=== PATIENT | female | born 1955 | race Caucasian/White ===

== ENCOUNTER → 2016-10-19 | Outpatient (CLI) | payer BC ==
--- NOTE | 2016-10-20 12:06 | MM ---
Reason for exam: screening (asymptomatic). Last mammogram was performed 1 year and 1 month ago. History: Patient is postmenopausal and has history of other cancer at age 60. Family history of breast cancer in mother at age 55. Took estrogen for 10 years. Physical Findings: A clinical breast exam by your physician is recommended on an annual basis and results should be correlated with mammographic findings. MG Screening Mammo w CAD Bilateral CC and MLO view(s) were taken. XCCL view(s) were taken of the left breast. Prior study comparison: September 17, 2015, bilateral MG screening mammo w CAD. July 22, 2014, bilateral MG screening mammo w CAD. There are scattered fibroglandular densities. Finding: There are stable, coarse calcifications in the upper outer quadrant, middle position of the left breast. No significant changes in finding since September 17, 2015 and July 22, 2014. ASSESSMENT: Benign, BI-RAD 2 RECOMMENDATION: Routine screening mammogram of both breasts in 1 year.
== END | disposition home or self-care (01) ==
LOC: RADMAMWWP 12:10
PROVIDERS: ATTEND Obstetrics & Gynecology
DX: Z12.31 Encounter for screening mammogram for malignant neoplasm of breast (principal)

== ENCOUNTER → 2016-12-06 | Outpatient (CLI) | payer BC ==
[2016-12-06 13:31] LABS: Blood Urea Nitrogen 21 mg/dL (7-17); Non-African American GFR(MDRD) 57 (>60 ml/min/1.73 sqM)
== END | disposition home or self-care (01) ==
LOC: LABWHC1 12:44
PROVIDERS: ATTEND Physical Medicine & Rehabilitation
DX: Z01.812 Encounter for preprocedural laboratory examination (principal)
CPT/HCPCS: 36415; 82565; 84520

== ENCOUNTER → 2017-10-22 | Outpatient (CLI) | payer OTHER ==
--- NOTE | 2017-10-24 11:00 | MM ---
Reason for exam: screening (asymptomatic). Last mammogram was performed 1 year ago. History: Patient is postmenopausal and has history of other cancer at age 60. Family history of breast cancer in mother at age 55. 2 benign excisional biopsies of the right breast. Took estrogen for 10 years. Physical Findings: A clinical breast exam by your physician is recommended on an annual basis and results should be correlated with mammographic findings. MG 3D Screening Mammo W/Cad Bilateral CC and MLO view(s) were taken. Technologist: RT Angélica (R)(M) Prior study comparison: October 19, 2016, bilateral MG screening mammo w CAD. September 17, 2015, bilateral MG screening mammo w CAD. The breast tissue is heterogeneously dense. This may lower the sensitivity of mammography. Benign appearing bilateral calcifications. No suspicious abnormality. No significant changes when compared with prior studies. ASSESSMENT: Benign, BI-RAD 2 RECOMMENDATION: Routine screening mammogram of both breasts in 1 year.
== END | disposition home or self-care (01) ==
LOC: RADMAMWWP 14:19
PROVIDERS: ATTEND Obstetrics & Gynecology
DX: Z12.31 Encounter for screening mammogram for malignant neoplasm of breast (principal); Z80.3 Family history of malignant neoplasm of breast
CPT/HCPCS: 77063; 77067

== ENCOUNTER → 2018-10-28 | Outpatient (CLI) | payer MEDICARE, OTHER ==
--- NOTE | 2018-10-29 10:53 | MM ---
Reason for exam: screening (asymptomatic). Last mammogram was performed 1 year ago. History: Patient is postmenopausal and has history of other cancer at age 60. Family history of breast cancer in mother at age 55. 2 benign excisional biopsies of the right breast. Took estrogen for 10 years. Physical Findings: A clinical breast exam by your physician is recommended on an annual basis and results should be correlated with mammographic findings. MG 3D Screening Mammo W/Cad Bilateral CC and MLO view(s) were taken. Prior study comparison: October 22, 2017, bilateral MG 3d screening mammo w/cad. October 19, 2016, bilateral MG screening mammo w CAD. The breast tissue is heterogeneously dense. This may lower the sensitivity of mammography. Stable benign calcifications. There is no discrete abnormality. No significant changes when compared with prior studies. ASSESSMENT: Benign, BI-RAD 2 RECOMMENDATION: Routine screening mammogram of both breasts in 1 year.
== END | disposition home or self-care (01) ==
LOC: RADMAMWWP 09:27
PROVIDERS: ATTEND Obstetrics & Gynecology
DX: Z12.31 Encounter for screening mammogram for malignant neoplasm of breast (principal); Z80.3 Family history of malignant neoplasm of breast
CPT/HCPCS: 77063; 77067

== ENCOUNTER 2019-01-17 14:18 | Inpatient (IN) | payer MEDICARE, OTHER ==
[~2019-01-17 14:18] MED LIST: AMPICILLIN-SULBACTAM 3 GM in SODIUM CHLORIDE 0.9% 100 ML IVPB ONE; VANCOMYCIN IV PER PHARMACY 1 EACH MISC MISCELLANE PRN
[2019-01-17] MEDS ORDERED: VANCOMYCIN 750 MG in SODIUM CHLORIDE 0.9% 250 ML IVPB ONE (15:00)
[2019-01-17] MEDS ORDERED: LACTATED RINGERS 1,000 ML IV ONE ×2 (15:18→19:48)
[2019-01-17 15:19] LABS: Glucose,Whole Blood 77 mg/dL (75-99)
[2019-01-17] MEDS ORDERED: LIDOCAINE 1% 20 ML VIAL (10MG/ML) FOR IV START INTRADERMA ONE (15:19)
[2019-01-17] MEDS ORDERED: ONDANSETRON 4 MG/2 ML VIAL IVP ONE (15:22)
[2019-01-17] MEDS ORDERED: MIDAZOLAM (PF) 2 MG/2 ML VIAL IV ONE (15:36)
[2019-01-17] MEDS ORDERED: MIDAZOLAM 2 MG/2 ML VIAL ONE (19:09)
[2019-01-17] MEDS ORDERED: PROPOFOL 10 MG/ML 20 ML VIAL IV ONE (19:09)
[2019-01-17] MEDS ORDERED: fentaNYL (PF) 50 MCG/ML 2 ML AMP ONE (19:09)
[2019-01-17] MEDS ORDERED: LIDOCAINE 1% INJ 10MG/ML (20 ML MDV) SQ ONE (19:58)
[2019-01-17] MEDS ORDERED: ROPIVACAINE 5MG/ML 20ML VIAL MISCELLANE ONE (20:00)
[2019-01-17] MEDS ORDERED: MORPHINE SULFATE 4 MG/ML SYRINGE IV PRN (21:32)
[2019-01-17] MEDS ORDERED: HYDROcodone/APAP 5-325MG 1 EACH TAB PO PRN (21:32)
[2019-01-17] MEDS ORDERED: VANCOMYCIN IV PER PHARMACY 1 EACH MISC MISCELLANE PRN (21:38)
[2019-01-17] MEDS ORDERED: VANCOMYCIN 1,000 MG in SODIUM CHLORIDE 0.9% 250 ML IVPB STA (21:48)
--- NOTE | 2019-01-17 21:49 | P.OP ---
Date of Procedure: 01/17/19 Preoperative Diagnosis: 1. Right thumb abscess status post dog bite injury 2. Comminuted intra-articular subacute open fracture of the right thumb proximal phalanx with dislocation of the interphalangeal joint Postoperative Diagnosis: 1. Right thumb abscess status post dog bite injury 2. Comminuted intra-articular subacute open fracture of the right thumb proximal phalanx with dislocation of the interphalangeal joint 3. Septic arthritis of the right thumb interphalangeal joint with likely osteomyelitis of the proximal and distal phalanges 4. Near complete rupture of the extensor pollicis longus tendon Procedure(s) Performed: 1. Incision and drainage of right thumb abscess 2. Irrigation and debridement of subacute open, intraarticular right thumb proximal phalanx fracture Anesthesia: MAC, local Surgeon: Pasquale Castro Estimated Blood Loss (ml): 10 Condition: stable Disposition: PACU Indications for Procedure: The patient is a very pleasant 63-year-old female who was evaluated in the office and diagnosed with a right thumb abscess secondary to a dog bite injury that occurred approximately 2 months ago. She failed to improve after 3 courses of oral antibiotics and was referred to ms for further evaluation and treatment. The thumb was grossly infected on exam. X-rays obtained in our office showed an intra-articular fracture of the proximal phalanx was substantial bone loss and dislocation of the interphalangeal joint. Treatment options and alternatives were discussed in detail with the patient and her . Operative debridement and possible surgical stabilization was recommended. Risks and benefits were reviewed, including (but not limited to) the risks of b leeding, injury to tendons or neurovascular structures, persistent or recurrent infection, wound healing problems, stiffness and possible need for additional surgery, including potentially amputation the distal phalanx. The patient expressed understanding, willingness to accept these risks and wished to proceed with surgery. Consent forms were signed. The surgical site was confirmed and marked preoperatively by both the patient and myself. Operative Findings: Gross purulence throughout the wound, including the end of the proximal phalanx and around the extensor and flexor tendons. Intramedullary bone of the distal phalanx was extremely soft, likely infected. Substantial bone loss of greater than half of the head of the proximal phalanx with persistent joint subluxation. Description of Procedure: The patient was positioned supine with the operative limb on an arm board. Monitored anesthesia was administered uneventfully. A tourniquet was placed on the arm but was not inflated. Antibiotics were held in anticipation of obtaining intraoperative cultures. A time-out was performed, confirming the patient, the operative side, site and the procedure to be performed: all team members expressed agreement. Local anesthetic without epinephrine was injected in a field block around the thumb. The right upper extremity was then prepped and draped in standard, sterile fashion. The hand (but not the thumb) was exsanguinated with an Esmarch which was clamped at the wrist and used as a tourniquet. Loupe magnification was used throughout the case for optimum visualization. The eschar on the ulnar aspect of the proximal phalanx measured approximately 11 mm x 8 mm. This was unroofed to revealed gross purulence below. A culture swab from the fluid at this site was obtained. A midaxial incision was marked over the ulnar aspect of the thumb, incorporating this area in an elliptical excision. The skin was sharply incised and full-thickness skin flaps were elevated. The surrounding skin was extremely edematous and friable, tearing easily. Two small ulcerated wounds over the dorsal aspect of the distal and proximal phalanges (present preoperatively) were opened in the process of debriding the dorsal soft tissues. The residual bone of the head of the proximal phalanx was immediately deep to the distal wound and was likely created by ulceration and chronic pressure necrosis. A large fragment of bone was attached to the undersurface of the eschar, likely the residual bone of the fractured head of the proximal phalanx. This had a piece of the collateral ligament and volar plate attached to it but was sitting free in the wound without other bony or soft tissue attachments. The bone was sclerotic, without any articular cartilage. This was felt to be nonviable and was removed. The wound was explored. Thin purulent fluid was found diffusely throughout the wound, extending along the dorsal soft tissues and extensor mechanism as well as on the dorsal surface of the flexor sheath. Tissue cultures were obtained. The fluid did not appear to track proximally along either the flexor or extensor sheaths. The pulp of the thumb was also edematous with similar fluid. Spreading dissection was used to break up septae. No large pockets of pus were encountered. Only a thin portion of the radial aspect of the terminal extensor tendon remained intact with significant loss of tendon substance extending all the way to the mid aspect of the proximal phalanx. The remaining tendon fibers proximally were friable and of very poor quality, tearing away easily with gentle traction. The distal aspect of the volar plate was absent. There was no visible damage to the FPL tendon and its insertion appeared intact. The remaining head of the proximal phalanx was identified. This was eburnated and completely devoid of articular cartilage, as was the corresponding surface of the distal phalanx. The distal phalanx rested in a volarly subluxed and ulnarly angulated position. The FPL was somewhat contracted but the joint could be passively reduced; however, less than half of the proximal joint surface bone remained. Given the appearance of the articular surfaces and in the setting of an active infection, the decision was made not to try to reduce and stabilize the remaining joint with internal fixation. The wound was sharply and mechanically debrided with scalpels, rongeurs and curettes. Proliferative fibrous tissue and infected or devitalized soft tissues were carefully resected. The sharp ends of the remaining bone of the proximal phalanx were trimmed with a rongeur and the bone end was debrided with a curette. The metaphyseal bone of the distal phalanx was examined. There were no visible erosions but the bone gave way easily when bluntly probed. The was no altagracia pus but the underlying cancellous bone was soft and did not appear healthy. This was carefully curetted and specimens of the bone were sent for culture. IV vancomycin was then administered. The endosteal space was thoroughly irrigated with normal saline using a syringe and angiocatheter. The entire surgical field was copiously irrigated using normal saline and a bulb syringe. The tourniquet was released after 65 minutes. Good capillary refill returned quickly. There was no active arterial bleeding but steady flow persisted from the medullary canal. The incisions and dorsal wounds were loosely closed with interrupted 5-0 Prolene sutures. A small soft tissue defect remained where the eschar had been excised, measuring approximately 4mm x 5 mm remained. No tendon, bone or neurovascular structures were exposed. A vessel loop was cut into 3 small strips and inserted into the wound as drains. Sterile dressings of Adaptic, 4 x 4's, Jo and Coban were applied. All sponge, needle and instrument counts were correct at the end of the case. The patient tolerated the procedure well. She was taken to recovery in stable condition. The patient will be admitted for continued treatment with IV antibiotics, to be guided by intraoperative cultures.
[2019-01-17] MEDS: HYDROcodone/APAP 5-325MG 1 EACH TAB PO PRN (22:01)
[2019-01-17 22:10] VITALS: BMI 21.7
[2019-01-17 22:29] LABS: Basophils # (A) 0.1 k/uL (0-0.2); Basophils % (A) 1 %; Eosinophils # (A) 0.5 k/uL (0-0.7); Eosinophils % (A) 7 %; HCT 34.9 % (34.0-46.0); HGB 11.5 gm/dL (11.4-16.0); Lymphocytes % (A) 27 %; MCH 28.4 pg (25.0-35.0); MCHC 32.8 g/dL (31.0-37.0); MCV 86.6 fL (80.0-100.0); Mean Platelet Volume 7.7; Monocytes # (A) 0.4 k/uL (0-1.0); Monocytes % (A) 5 %; Neutrophils # (A) 4.1 k/uL (1.3-7.7); Neutrophils % (A) 58 %; Platelet Count 312 k/uL (150-450); RBC 4.03 m/uL (3.80-5.40); RDW 14.5 % (11.5-15.5); WBC 7.1 k/uL (3.8-10.6)
[2019-01-17 22:37] LABS: African American GFR (CKD) 77 (>60 ml/min/1.73 sqM); Anion Gap 5 mmol/L; Blood Urea Nitrogen 20 mg/dL (7-17); C Reactive Protein <5.0 mg/L (<10.0); Calcium 9.1 mg/dL (8.4-10.2); Carbon Dioxide 28 mmol/L (22-30); Chloride 105 mmol/L (98-107); Glucose 85 mg/dL (74-99); Potassium 4.4 mmol/L (3.5-5.1); Sodium 138 mmol/L (137-145)
[2019-01-17 23:45] LABS: Erythrocyte Sedimentation Rate 8 mm/hr (0-20)
--- NOTE | 2019-01-17 23:50 | FL ---
EXAMINATION TYPE: FL guidance operating room, XR finger RT DATE OF EXAM: 01/17/2019 CLINICAL HISTORY: Right thumb infection. TECHNIQUE: Fluoroscopy. 2 views right thumb. COMPARISON: None. FINDINGS: Fluoroscopic guidance was provided during incision and drainage procedure on right thumb p erformed by Dr. Castro. A total of 18 seconds of fluoroscopic time was utilized during the proce dure and 4 spot intraoperative fluoroscopic images are acquired. Images obtained show defect distal aspect first middle phalanx with removal of radiodense linear soft tissue foreign body on later images. IMPRESSION: As Above.
[2019-01-18] MEDS: HYDROcodone/APAP 5-325MG 1 EACH TAB PO PRN (03:14)
[2019-01-18] MEDS: ONDANSETRON 4 MG/2 ML VIAL IVP PRN (09:01)
[2019-01-18] MEDS: ENOXAPARIN 40 MG/0.4 ML SYRINGE SQ SCH (09:01)
[2019-01-18] MEDS ORDERED: ACETAMINOPHEN TAB 325 MG TAB PO PRN ×2 (10:50→11:37)
[2019-01-18] MEDS ORDERED: Acetaminophen-Codeine 300-30mg TAB PO PRN (12:19)
[2019-01-18] MEDS: VANCOMYCIN 1,000 MG in SODIUM CHLORIDE 0.9% 250 ML IVPB SCH (12:38)
[2019-01-18] MEDS: METOCLOPRAMIDE 5 MG/ML 2 ML VIAL IVP PRN (12:38)
--- NOTE | 2019-01-18 13:18 | P.PN ---
Subjective Progress Note Date: 01/18/19 The patient was seen and examined; her is present at the bedside. Overnight events discussed with RN. The patient has had persistent nausea with some emesis. She is having difficulty keeping food down. She feels this may be secondary to the hydrocodone. She is taking regular Tylenol now and states the pain is manageable. She says it feels very different than it did before surgery with less pressure. She denies any other issues or concerns. Objective - Vital Signs Vital signs: Vital Signs Temp 97.4 F L 01/18/19 07:54 Pulse 73 01/18/19 08:35 Resp 12 01/18/19 07:54 BP 134/67 01/18/19 07:54 Pulse Ox 92 L 01/18/19 07:54 Intake & Output 01/17/19 01/18/19 01/18/19 18:59 06:59 18:59 Intake Total 600 1530 Output Total 10 Balance 600 1520 Weight 50.349 kg Intake: IV 600 1350 Intake, IV Titration 180 Amount Lactated Ringers 1,000 ml 180 @ 0 mls/hr IV .[facility] Rx#:[id number] Output: Estimated Blood Loss 10 Other: # Voids 1 - Exam Patient is lying reclined in bed. She appears comfortable and in no acute distress. Unlabored breathing with a normal respiratory rate. Musculoskeletal: The dressings had soaked through with blood but were now dry. These were removed. The 2 distal vessel loops came out with the dressings and the proximal one was left in place. The incision is well approximated with sutures are in place. The central aspect of the wound, where the eschar was removed, is covered with clotted blood is no sign of dehiscence or exposed underlying structures. The edema and erythema are markedly improved. There is no palpable fluctuance. No bleeding or visible purulence. Persistent ulnar angulation of the distal phalanx. - Labs CBC & Chem 7: 01/17/19 21:58 01/17/19 21:58 Labs: Abnormal Lab Results - Last 24 Hours (Table) 01/17/19 Range/Units 21:58 BUN 20 H (7-17) mg/dL Microbiology - Last 24 Hours (Table) 01/17/19 20:24 Gram Stain - Preliminary Finger - Right First Tissue Culture - Preliminary 01/17/19 20:24 Gram Stain - Preliminary Finger - Right First Wound Culture - Preliminary 01/17/19 20:24 Gram Stain - Preliminary Finger - Right First Tissue Culture - Preliminary 01/17/19 20:24 Fungal Culture - Preliminary Finger - Right First 01/17/19 20:24 Fungal Culture - Preliminary Finger - Right First 01/17/19 20:24 Anaerobic Culture - Preliminary Finger - Right First 01/17/19 20:24 Anaerobic Culture - Preliminary Finger - Right First 01/17/19 20:24 Fungal Culture - Preliminary Finger - Right First 01/17/19 20:24 Anaerobic Culture - Preliminary Finger - Right First Initial gram stain shows rare many WBC and rare gram-positive cocci Assessment and Plan Assessment: 1. Postoperative day #1 status post incision and drainage of right thumb abscess with irrigation and debridement of subacute open fracture-dislocation of the proximal phalanx/interphalangeal joint 2. Right thumb infection with osteomyelitis secondary to dog bite injury 3. Postoperative nausea and emesis 4. Nicotine addiction Plan: I discussed the clinical and intraoperative findings with the patient and her . The thumb is already looking much better but I explained that repeat debridement may be necessary and will be based on her clinical response to the antibiotics. Intraoperative cultures are in progress. Continue empiric treatment with IV vancomycin. Infectious disease service has been consulted for further evaluation and treatment recommendations. DIANA [place]. We will start PRN Reglan for nausea. Advance diet as tolerated. Continue Tylenol or Tylenol No. 3 as needed for pain. Dressings may be changed as needed if saturated. Continue SCDs and LMWH for DVT prophylaxis. Encouraged regular ambulation in addition. The patient may use the hand as tolerated but should avoid active motion of the IP joint or pinching with the tip of the thumb. The IP joint is still subluxed and unstable. This will ultimately require further operative treatment but recommended waiting until intraoperative culture results are obtained before making a definitive treatment plan.
[2019-01-18] MEDS ORDERED: VANCOMYCIN 1,000 MG in SODIUM CHLORIDE 0.9% 250 ML IVPB SCH (21:00)
[2019-01-18] MEDS ORDERED: guaiFENesin 600 MG TABLET.ER PO SCH (21:00)
[2019-01-18] MEDS ORDERED: ALBUTEROL NEBULIZED 2.5 MG/3 ML INHALATION PRN (21:09)
[2019-01-18] MEDS: Acetaminophen-Codeine 300-30mg TAB PO PRN (21:18)
[2019-01-18] MEDS: SERTRALINE 100 MG TAB PO SCH (21:18)
[2019-01-18] MEDS: hydrOXYzine PAMOATE 25 MG CAP PO PRN (21:18)
[2019-01-18] MEDS: CHOLECALCIFEROL 1,000 UNIT TAB PO SCH (21:18)
[2019-01-18] MEDS: buPROPion XL 150 MG TAB.ER.24H PO SCH (21:18)
[2019-01-18] MEDS: MONTELUKAST 10 MG TAB PO SCH (21:19)
[2019-01-19] MEDS: VANCOMYCIN 1,000 MG in SODIUM CHLORIDE 0.9% 250 ML IVPB SCH ×2 (04:30→19:42)
[2019-01-19] MEDS: Acetaminophen-Codeine 300-30mg TAB PO PRN ×3 (04:32→19:42)
[2019-01-19] MEDS: hydrOXYzine PAMOATE 25 MG CAP PO PRN ×2 (04:32→19:42)
[2019-01-19] MEDS: SYMBICORT 160-4.5 MCG INHALER INHALATION SCH ×2 (07:53→19:49)
[2019-01-19] MEDS: buPROPion XL 150 MG TAB.ER.24H PO SCH (08:44)
[2019-01-19] MEDS: ENOXAPARIN 40 MG/0.4 ML SYRINGE SQ SCH (08:44)
[2019-01-19] MEDS: CHOLECALCIFEROL 1,000 UNIT TAB PO SCH (08:44)
[2019-01-19] MEDS: SERTRALINE 100 MG TAB PO SCH (08:44)
--- NOTE | 2019-01-19 09:31 | P.CONS ---
History of Present Illness - Reason for Consult Consult date: 01/18/19 Right thumb infection and ostomy myelitis Requesting physician: Pasquale Castro - Chief Complaint Right thumb infection 2 months - History of Present Illness Patient is a 63-year-old female who did sustain injury to her right thumb from a night bite when she was trying to break up a fight between 2 dogs about 2 months ago the patient said she went to the local emergency room and the patient wound was stitched up and she was given oral clindamycin subsequently has follow-up with her primary care physician and she has been really treated with 2 different courses of oral antibiotics however the patient did not have healing of her right thumb rather she hasn't progressively worsening of the right thumb with more swelling redness and pain pain described to be dull aching 1-2 out of 10 and no radiation, with non-healing of her wound and some black kofi color the patient has been referred to orthopedics for further evaluation patient was evaluated by orthopedics in the office on she did have x- rays of the right hand thumb did show evidence of intra-articular fracture and bone loss she was taken to the OR yesterday and is status post deployment of the wound drainage of an abscess culture has been obtained patient subsequently has been started on antibiotic and infectious disease was consulted for further recommendation regarding antibiotic therapy Review of Systems CONSTITUTIONAL: Positive for weakness. Denies high-grade Fever EYES: No complaint. ENT:No complaint. RESPIRATORY: No complaint. CARDIOVASCULAR: No complaint. GENITOURINARY: No complaint. GASTROINTESTINAL: No complaint. MUSCULOSKELETAL: As per history of present illness. INTEGUMENTARY: As per history of present illness PSYCHOLOGICAL: No complaint. ENDOCRINE: No complaint. NEUROLOGIC: No complaint. Past Medical History Past Medical History: Cancer, COPD Additional Past Medical History / Comment(s): uterine cancer History of Any Multi-Drug Resistant Organisms: None Reported Year Discovered:: 2014 MDRO Source:: NOSE Past Surgical History: No Surgical Hx Reported Past Anesthesia/Blood Transfusion Reactions: No Reported Reaction Past Psychological History: Anxiety Smoking Status: Current every day smoker Past Alcohol Use History: None Reported Past Drug Use History: None Reported Medications and Allergies Home Medications Medication Instructions Recorded Confirmed Type Cetirizine HCl [Zyrtec] 10 mg PO QAM 03/25/15 01/17/19 History Cholecalciferol [Vitamin D3 (25 1,000 unit PO DAILY 03/25/15 01/17/19 History Mcg = 1000 Iu)] Chromium Picolinate 500 mcg PO DAILY 03/25/15 01/17/19 History Cimetidine [Tagamet] 200 mg PO DAILY PRN 03/25/15 01/17/19 History Fish Oil/Dha/Epa [Fish Oil 1,200 1 cap PO DAILY 03/25/15 01/17/19 History mg Fish Oil] Glucosamine Sulfate 500 mg PO DAILY 03/25/15 01/17/19 History L.acidoph,Paracasei, B.lactis 1 cap PO DAILY 03/25/15 01/17/19 History [Probiotic] Magnesium 250 mg PO DAILY 03/25/15 01/17/19 History Meloxicam [Mobic] 7.5 mg PO DAILY 03/25/15 01/17/19 History Montelukast [Singulair] 10 mg PO HS 03/25/15 01/17/19 History Multivitamins, Thera [Multivitamin 1 tab PO DAILY 03/25/15 01/17/19 History (formulary)] Sertraline HCl [Zoloft] 100 mg PO QAM 03/25/15 01/17/19 History Vitamin E (Dl,Tocopheryl Acet) 400 unit PO DAILY 03/25/15 01/17/19 History [Vitamin E] Zinc 50 mg PO DAILY 03/25/15 01/17/19 History buPROPion XL [Wellbutrin XL] 150 mg PO QAM 03/25/15 01/17/19 History chlordiazePOXIDE HCl [Librium] 10 mg PO QAM 03/25/15 01/17/19 History Biotin 1,000 mcg PO DAILY 03/30/15 01/17/19 History Albuterol Sulfate [Proventil Hfa] 1 - 2 puff INHALATION Q6HR PRN #1 04/01/15 01/17/19 Rx inhaler Budesonide-Formot 160-4.5 Mcg 2 puff INHALATION RT-BID #1 puff 04/01/15 01/17/19 Rx [Symbicort 160-4.5 Mcg Inhaler] guaiFENesin [Mucinex] 600 mg PO Q12HR #60 tablet.er 04/01/15 01/17/19 Rx predniSONE 40 mg PO DAILY #15 tab 04/01/15 01/17/19 Rx Allergies Allergy/AdvReac Type Severity Reaction Status Date / Time amoxicillin Allergy MUSCLE Verified 01/17/19 15:05 WEAKNESS chicken derived [Chicken] Allergy Unknown Verified 01/17/19 15:05 Physical Exam Vitals: Vital Signs Temp Pulse Resp BP Pulse Ox 01/18/19 15:42 70 12 01/18/19 15:18 97.6 F 70 12 151/69 93 L 01/18/19 08:35 73 01/18/19 07:54 97.4 F L 73 12 134/67 92 L 01/18/19 00:00 58 L 134/78 01/17/19 23:45 56 L 148/75 01/17/19 23:30 57 L 156/78 01/17/19 23:15 61 159/78 01/17/19 23:00 57 L 153/82 01/17/19 22:45 60 168/78 01/17/19 22:30 61 162/82 01/17/19 22:15 61 144/79 01/17/19 22:00 98.0 F 64 14 189/68 94 L 01/17/19 21:41 67 16 154/72 100 01/17/19 21:28 62 16 164/77 100 01/17/19 21:13 97.7 F 79 16 180/87 100 Intake and Output 01/18/19 01/18/19 01/18/19 06:59 14:59 22:59 Intake Total 180 Balance 180 Intake: Intake, IV Titration 180 Amount Lactated Ringers 1,000 ml 180 @ 0 mls/hr IV .[facility] Rx#:[id number] Other: # Voids 3 GENERAL DESCRIPTION: Elderly female lying in bed, no distress. No tachypnea or accessory muscle of respiration use. HEENT: Shows Pallor , no scleral icterus. Oral mucous membrane is dry. No pharyngeal erythema or thrush NECK: Trachea central, no thyromegaly. LUNGS: Unlabored breathing. Clear to auscultation anteriorly. No wheeze or crackle. HEART: S1, S2, regular rate and rhythm. No loud murmur ABDOMEN: Soft, no tenderness , guarding or rigidity, no organomegaly EXTREMITIES: Right thumb is currently dressed up in the OR dressing there is no drainage on the dressing SKIN: No rash, no masses palpable. NEUROLOGICAL: The patient is awake, alert, oriented x3, mood and affect normal. Results CBC & Chem 7: 01/17/19 21:58 01/19/19 06:43 Labs: Abnormal Lab Results - Last 24 Hours (Table) 01/17/19 Range/Units 21:58 BUN 20 H (7-17) mg/dL Microbiology - Last 24 Hours (Table) 01/17/19 20:24 Gram Stain - Preliminary Finger - Right First Tissue Culture - Preliminary 01/17/19 20:24 Gram Stain - Preliminary Finger - Right First Wound Culture - Preliminary 01/17/19 20:24 Gram Stain - Preliminary Finger - Right First Tissue Culture - Preliminary 01/17/19 20:24 Fungal Culture - Preliminary Finger - Right First 01/17/19 20:24 Fungal Culture - Preliminary Finger - Right First 01/17/19 20:24 Anaerobic Culture - Preliminary Finger - Right First 01/17/19 20:24 Anaerobic Culture - Preliminary Finger - Right First 01/17/19 20:24 Fungal Culture - Preliminary Finger - Right First 01/17/19 20:24 Anaerobic Culture - Preliminary Finger - Right First Assessment and Plan Assessment: 1-patient with right thumb injury about 2 months ago from a dog bite that has failed to respond to 2 courses of oral clindamycin and one course of Bactrim DS now with evidence of possible intra-articular fracture and bony loss with concern for underlying Osteomyelitis will need to cover for both gram-positive skin markie in addition to the gram-negative oral markie of the Dog mouth 2-patient with penicillin ALLERGY that would limit the number of antibiotic safe to use (1) Subacute osteomyelitis, right hand Current Visit: Yes Status: Acute Code(s): M86.241 - SUBACUTE OSTEOMYELITIS, RIGHT HAND SNOMED Code(s): 24064200 (2) Dog bite Current Visit: Yes Status: Acute Code(s): W54.0XXA - BITTEN BY DOG, INITIAL ENCOUNTER SNOMED Code(s): 177687982 Plan: 1--vancomycin pharmacy to dose target trough of 15 while watching her kidney function and Vanco trough closely 2-we'll add Rocephin 2 g daily and oral Flagyl 500 mg every 8 hour we will follow on clinical condition and culture to further adjust medication if needed Thank you for this consultation will follow this patient along with you Time with Patient: Greater than 30
--- NOTE | 2019-01-19 12:28 | P.PN ---
Subjective Progress Note Date: 01/19/19 The patient was seen and examined; her is present at the bedside. Chart reviewed and interval events discussed with RN. The patient states the nausea has resolved and she is now able to tolerate a diet. The pain is currently well controlled with Tylenol 3's. She denies any new issues or concerns. Objective - Vital Signs Vital signs: Vital Signs Temp 98 F 01/19/19 07:37 Pulse 72 01/19/19 07:37 Resp 12 01/19/19 07:37 BP 158/79 01/19/19 07:37 Pulse Ox 92 L 01/19/19 07:37 Intake & Output 01/18/19 01/19/19 01/19/19 18:59 06:59 18:59 Intake Total 750 Balance 750 Intake: Intake, IV Titration 250 Amount Vancomycin 1,000 mg In 250 Sodium Chloride 0.9% 250 ml @ 125 mls/hr IVPB Q16H [facility] Rx#:[id number] Oral 500 Other: # Voids 3 2 - Exam The patient is sitting up in a chair Musculoskeletal: The dressings were removed. The vessel loops drain had come out on its own and was sitting within the dressings. Mild interval increase in edema and erythema surrounding the wound as well as within the pulp. No gross purulence, drainage or discrete fluctuance. The skin around the wound is still quite inflammed and friable but sutures remain in place with no dehiscence. - Labs CBC & Chem 7: 01/17/19 21:58 01/19/19 06:43 Labs: Microbiology - Last 24 Hours (Table) 01/17/19 20:24 Gram Stain - Preliminary Finger - Right First Tissue Culture - Preliminary 01/17/19 20:24 Gram Stain - Preliminary Finger - Right First Wound Culture - Preliminary 01/17/19 20:24 Gram Stain - Preliminary Finger - Right First Tissue Culture - Preliminary Assessment and Plan Assessment: 1. Postoperative day #2 status post incision and drainage of right thumb absc ess with irrigation and debridement of subacute open fracture-dislocation of the proximal phalanx/interphalangeal (IP) joint 2. Septic arthritis of the right thumb IP joint with osteomyelitis secondary to dog bite injury 3. Nicotine addiction Plan: Recommended starting soaks in warm saline and betadine (10:1 ratio) at least 3- 4x per day. Intraoperative cultures are still pending. Continue empiric antibiotic treatment per Infectious Disease. Continue regular Tylenol or Tylenol #3 as needed for pain. Continue SCDs and LMWH for DVT prophylaxis. Encouraged regular ambulation in addition. The patient may use the hand as tolerated but should avoid active motion of the IP joint or pinching with the tip of the thumb. Discussed multiple future treatment options with the patient and her , including repeat debridement (with or without surgical stabilization of the IP joint) as well as early or late amputation of the distal phalanx. If the thumb continues to improve, we will likely perform a repeat I&D with internal or external fixation of the IP joint prior to discharge. Anticipate need for a PICC line and detention outpatient IV antibiotics
[2019-01-19] MEDS: metroNIDAZOLE 500 MG TAB PO SCH ×2 (15:30→19:42)
[2019-01-19] MEDS: MONTELUKAST 10 MG TAB PO SCH (19:42)
--- NOTE | 2019-01-20 00:01 | PN ---
PROGRESS NOTE DATE OF SERVICE: 01/19/2019. REASON FOR FOLLOWUP: Right thumb osteomyelitis and dog bite. INTERVAL HISTORY: The patient is currently afebrile. Patient overall pain to the thumb has slightly decreased intensity. The patient denies having any chest pain, shortness of breath or cough. No nausea or vomiting. No abdominal pain. No diarrhea. PHYSICAL EXAMINATION: Blood pressure 116/75 with a pulse of 63, temperature 98.6. She is 95% on room air. General description is an elderly female up in the room in no distress. The right thumb is currently dressed up, no obvious drainage on the dressing. Lungs: Unlabored breathing, clear to auscultation anteriorly. Heart S1, S2. Regular rate and rhythm. Abdomen: Soft, no tenderness. LAB: Cultures currently showing presumptive Staph aureus. DIAGNOSTIC IMPRESSION AND PLAN: Patient with chronic wound to the right thumb, dog bite, failing outpatient clindamycin and Bactrim with underlying osteomyelitis status post. The patient at this time to continue with vancomycin and Rocephin while waiting for the culture to finalize. He will need a PICC line for outpatient IV antibiotic therapy. This was discussed further the case coordinator. Continue supportive care. MMODL / IJN: [id number] /
[2019-01-20] MEDS: Acetaminophen-Codeine 300-30mg TAB PO PRN ×3 (01:46→19:23)
[2019-01-20] MEDS: hydrOXYzine PAMOATE 25 MG CAP PO PRN (01:46)
[2019-01-20] MEDS: ONDANSETRON 4 MG/2 ML VIAL IVP PRN ×3 (01:48→20:47)
[2019-01-20] MEDS: ENOXAPARIN 40 MG/0.4 ML SYRINGE SQ SCH (06:42)
[2019-01-20] MEDS: SYMBICORT 160-4.5 MCG INHALER INHALATION SCH ×2 (07:22→20:26)
[2019-01-20] MEDS: METOCLOPRAMIDE 5 MG/ML 2 ML VIAL IVP PRN (07:35)
[2019-01-20] MEDS: CHOLECALCIFEROL 1,000 UNIT TAB PO SCH (09:35)
[2019-01-20] MEDS: buPROPion XL 150 MG TAB.ER.24H PO SCH (09:36)
[2019-01-20] MEDS: metroNIDAZOLE 500 MG TAB PO SCH ×3 (09:36→19:24)
[2019-01-20] MEDS: SERTRALINE 100 MG TAB PO SCH (09:36)
[2019-01-20] MEDS ORDERED: VANCOMYCIN TROUGH DUE 1 EACH MISC MISCELLANE ONE (11:00)
[2019-01-20] MEDS: VANCOMYCIN 1,250 MG in SODIUM CHLORIDE 0.9% 250 ML IVPB SCH (14:06)
--- NOTE | 2019-01-20 17:36 | P.PN ---
Subjective Progress Note Date: 01/20/19 Attempted to see the patient but she was off the floor getting a PICC line placed. Discussed interval events with her . Arrangements for outpatient antibiotics in place. Awaiting final culture result s. Will reevaluate clinical progress of the thumb in the AM. Still planning for repeat I&D and pinning of the IP joint prior to discharge. Objective - Vital Signs Vital signs: Vital Signs Temp 98.0 F 01/20/19 15:45 Pulse 62 01/20/19 15:45 Resp 16 01/20/19 15:45 BP 176/73 01/20/19 15:45 Pulse Ox 95 01/20/19 15:45 Intake & Output 01/19/19 01/20/19 01/20/19 18:59 06:59 18:59 Intake Total 1600 Output Total 3 Balance 1600 -3 Intake: Intake, IV Titration 1000 Amount cefTRIAXone 2 gm In 1000 Sodium Chloride 0.9% 50 ml @ 100 mls/hr IVPB Q24HR [facility] Rx#:[id number] Oral 600 Output: Urine 3 Other: # Voids 2 2 - Labs CBC & Chem 7: 01/17/19 21:58 01/19/19 06:43 Labs: Microbiology - Last 24 Hours (Table) 01/17/19 20:24 Gram Stain - Final Finger - Right First Tissue Culture - Final Staphylococcus intermedius 01/17/19 20:24 Gram Stain - Preliminary Finger - Right First Tissue Culture - Preliminary Presumptive Staph aureus 01/17/19 20:24 Gram Stain - Preliminary Finger - Right First Wound Culture - Preliminary Presumptive Staph aureus
--- NOTE | 2019-01-20 19:14 | PN ---
PROGRESS NOTE DATE OF SERVICE: 01/20/2019. REASON FOR FOLLOWUP: Right thumb osteomyelitis. INTERVAL HISTORY: The patient is currently afebrile. Patient has been breathing comfortably. Pain and discomfort to the thumb area has slightly decreased intensity. No chest pain. No cough. No abdominal pain. No diarrhea. PHYSICAL EXAMINATION: Blood pressure 182/74 with pulse of 73, temperature 98.1. She is 94% on room air. General description is an elderly female up in the chair in no distress. Respiratory system: Unlabored breathing. Clear to auscultation anteriorly. Heart S1, S2. Regular rate and rhythm. Abdomen soft, no tenderness. Right thumb did have a deformity, some swelling, minimal redness and no drainage. LABS: Wound culture showing Staph intermedius and presumptive Staph aureus with sensitivities pending. DIAGNOSTIC IMPRESSION AND PLAN: Patient with right thumb osteomyelitis from a dog bite failing outpatient oral antibiotic therapy. Culture currently showing Staph aureus. Plan is to continue the patient on Rocephin and vancomycin with the discharge antibiotic depending upon the sensitivity. She will need a PICC line, which will be ordered with weekly monitoring of her blood work. Continue supportive care. MMODL / IJN: [id number] /
[2019-01-20] MEDS: MONTELUKAST 10 MG TAB PO SCH (19:23)
[2019-01-21] MEDS: VANCOMYCIN 1,250 MG in SODIUM CHLORIDE 0.9% 250 ML IVPB SCH (04:59)
[2019-01-21] MEDS: Acetaminophen-Codeine 300-30mg TAB PO PRN ×3 (04:59→18:14)
[2019-01-21] MEDS: ONDANSETRON 4 MG/2 ML VIAL IVP PRN ×2 (05:27→11:52)
[2019-01-21 07:02] LABS: African American GFR (CKD) >90 (>60 ml/min/1.73 sqM)
[2019-01-21] MEDS: SYMBICORT 160-4.5 MCG INHALER INHALATION SCH ×2 (08:21→19:49)
[2019-01-21] MEDS: CHOLECALCIFEROL 1,000 UNIT TAB PO SCH (09:48)
[2019-01-21] MEDS: buPROPion XL 150 MG TAB.ER.24H PO SCH (09:48)
[2019-01-21] MEDS: SERTRALINE 100 MG TAB PO SCH (09:48)
[2019-01-21] MEDS: metroNIDAZOLE 500 MG TAB PO SCH ×3 (09:48→21:47)
[2019-01-21] MEDS: ENOXAPARIN 40 MG/0.4 ML SYRINGE SQ SCH (09:49)
--- NOTE | 2019-01-21 09:52 | IR ---
EXAMINATION TYPE: IR cvc insert >=5 years DATE OF EXAM: 01/21/2019 COMPARISON: NONE CLINICAL HISTORY: Infection Needs long-term intravenous access for antibiotics. PROCEDURE: After informed consent, the skin overlying the left brachial vein was localized with ultrasound and n oted to be compressible and patent. An ultrasound image was obtained and submitted on the patient's chart. The overlying skin was prepped and draped and Lidocaine was used for local anesthesia. A ski n bao was made with a scalpel. Access was gained to the vein under ultrasound guidance with a 21 ga uge needle and a 0.018 inch wire was advanced. Access site was dilated with Peel-Away sheath and cat heter tailored to the appropriate length and advanced such that the distal tip is at the cavoatrial j unction. Spot image was obtained verifying placement. Catheter was fixed to the skin with suture an d a sterile dressing was placed following hemostasis. Catheter was aspirated and flushed with saline . Patient was discharged in stable condition without complication. Maximal barrier technique is util ized. Ultrasound image is documented on the chart. Ultrasound used with sterile technique. Fluoro time and fluoroscopic images submitted to document procedure: 245 intraoperative C-arm images document the procedure, 0.2 minutes fluoroscopy time. IMPRESSION: STATUS POST ULTRASOUND AND FLUOROSCOPIC GUIDED PICC LINE PLACEMENT, READY FOR USE. THIS PROCEDURE WAS PERFORMED BY THE UNDERSIGNED.
--- NOTE | 2019-01-21 18:51 | PN ---
PROGRESS NOTE DATE OF SERVICE: 01/21/2019. REASON FOR FOLLOWUP: Right thumb osteomyelitis, subacute. INTERVAL HISTORY: The patient is currently afebrile. Patient has been breathing comfortably. Pain to the right thumb area has decreased intensity. No further drainage. No chest pain, shortness of breath or cough. No abdominal pain. No diarrhea. PHYSICAL EXAMINATION: Blood pressure is 162/80 with a pulse 66, temperature 98.8. She is 92% on room air. General description is an elderly female up in the chair in no distress. Respiratory system: Unlabored breathing. Clear to auscultation anteriorly. Heart is S1, S2. Regular rate and rhythm. ABDOMEN: Soft, nontender. Right thumb is currently dressed up. No obvious drainage on the dressing. LABS: No new labs have been obtained today. Culture has been finalized with Streptococcus intermedius which is oxacillin sensitive in addition to the anaerobic gram-positive cocci. DIAGNOSTIC IMPRESSION AND PLAN: Patient with right thumb osteomyelitis subacute in this patient who has failed outpatient oral antibiotic therapy culture, Streptococcus intermedius anaerobic gram-positive cocci. Currently on Rocephin and Flagyl to continue. Vancomycin will be discontinued. She will continue current antibiotic for at least 6 weeks with weekly monitoring of CBC, BMP and sed rate and close outpatient followup. MMODL / IJN: [id number] /
[2019-01-21] MEDS ORDERED: ALPRAZolam 0.5 MG TAB PO PRN (19:28)
[2019-01-21] MEDS: MONTELUKAST 10 MG TAB PO SCH (21:47)
[2019-01-22] MEDS: VANCOMYCIN 1,250 MG in SODIUM CHLORIDE 0.9% 250 ML IVPB SCH ×2 (00:03→19:02)
--- NOTE | 2019-01-22 08:16 | P.PN ---
Subjective Progress Note Date: 01/21/19 The patient reports the pain is adequately controlled. She had some recurrent nausea but this has now subsided. She feels the soaks have been helpful. Objective - Vital Signs Vital signs: Vital Signs Temp 98.1 F 01/22/19 00:53 Pulse 66 01/22/19 00:53 Resp 18 01/22/19 00:53 BP 175/76 01/22/19 00:53 Pulse Ox 91 L 01/22/19 00:53 Intake & Output 01/21/19 01/22/19 01/22/19 18:59 06:59 18:59 Intake Total 540 250 Balance 540 250 Intake: Intake, IV Titration 250 Amount Vancomycin 1,250 mg In 250 Sodium Chloride 0.9% 250 ml @ 125 mls/hr IVPB Q16H [facility] Rx#:[id number] Oral 540 Other: Voiding Method Toilet # Voids 2 3 - Exam Musculoskeletal: The dressings were removed. Slight improvement in edema and erythema. The pulp is edematous but not fluctuant. Minimally tender to palpation. Persistent ulnar angular deformity of the distal phalanx with subluxation of the IP joint. - Labs CBC & Chem 7: 01/17/19 21:58 01/21/19 06:34 Assessment and Plan Assessment: 1. Postoperative day #4 status post incision and drainage of right thumb abscess with irrigation and debridement of subacute open fracture-dislocation of the proximal phalanx/interphalangeal (IP) joint 2. Septic arthritis of the right thumb IP joint with osteomyelitis secondary to dog bite injury 3. Cultures positive for Staph intermedius 4. Nicotine addiction Plan: PICC line has been placed. Arrangements for outpatient IV antibiotics in progress. Continue soaks in warm saline and betadine (10:1 ratio) at least 3-4x per day. Continue PRN pain management. Plan for repeat I&D and surgical stabilization of the IP joint on Monday 01/22.
[2019-01-22 08:25] VITALS: RESP 16
[2019-01-22] MEDS: SYMBICORT 160-4.5 MCG INHALER INHALATION SCH ×3 (09:07→20:48)
[2019-01-22] MEDS: CHOLECALCIFEROL 1,000 UNIT TAB PO SCH (09:35)
[2019-01-22] MEDS: buPROPion XL 150 MG TAB.ER.24H PO SCH (09:41)
[2019-01-22] MEDS: ENOXAPARIN 40 MG/0.4 ML SYRINGE SQ SCH (10:00)
[2019-01-22] MEDS: SERTRALINE 100 MG TAB PO SCH (10:00)
[2019-01-22] MEDS: metroNIDAZOLE 500 MG TAB PO SCH ×3 (10:01→21:01)
[2019-01-22] MEDS ORDERED: LACTATED RINGERS 1,000 ML IV SCH (12:00)
[2019-01-22] MEDS ORDERED: PANTOPRAZOLE 40 MG/10 ML VIAL IVP ONE (12:11)
--- NOTE | 2019-01-22 13:30 | P.PN ---
Subjective Progress Note Date: 01/22/19 The patient was seen and examined. The overall pain level is substantially diminished and she is using the opioids less frequently. She has been performing regular soaks as instructed and feels these have been beneficial. The thumb is quite sore when bumped but pain level at rest is tolerable. Objective - Vital Signs Vital signs: Vital Signs Temp 97.8 F 01/22/19 07:39 Pulse 67 01/22/19 07:39 Resp 16 01/22/19 07:39 BP 169/51 01/22/19 07:39 Pulse Ox 93 L 01/22/19 07:39 Intake & Output 01/21/19 01/22/19 01/22/19 18:59 06:59 18:59 Intake Total 540 250 Balance 540 250 Intake: Intake, IV Titration 250 Amount Vancomycin 1,250 mg In 250 Sodium Chloride 0.9% 250 ml @ 125 mls/hr IVPB Q16H [facility] Rx#:[id number] Oral 540 Other: Voiding Method Toilet Toilet # Voids 2 3 - Exam Musculoskeletal: The dressings are clean and dry without strikethrough or shadowing. Appropriate tenderness to palpation. Palpable bony malalignment of the distal phalanx. - Labs CBC & Chem 7: 01/17/19 21:58 01/21/19 06:34 Assessment and Plan Assessment: 1. Postoperative day #5 status post incision and drainage of right thumb abscess with irrigation and debridement of subacute open fracture-dislocation of the proximal phalanx/interphalangeal (IP) joint 2. Septic arthritis of the right thumb IP joint with osteomyelitis secondary to dog bite injury 3. Cultures positive for Staph intermedius and anaerobic gram-positive cocci 4. Nicotine addiction Plan: The patient is doing well overall. Based on the severity and chronicity of the initial injury, I feel she would benefit from a repeat debridement and stabilization of the IP joint. Risks and benefits were again discussed. The patient expressed understanding and wishes to proceed with surgery. NPO. Plan for surgery this afternoon and likely DC home afterwards, barring any postop issues.
[2019-01-22] MEDS ORDERED: IV FLUID CONTINUATION 1,000 ML IV ONE ×2 (14:16→18:44)
[2019-01-22] MEDS: ONDANSETRON 4 MG/2 ML VIAL IVP PRN ×3 (14:22→19:26)
[2019-01-22] MEDS ORDERED: MIDAZOLAM 2 MG/2 ML VIAL ONE (15:35)
[2019-01-22] MEDS ORDERED: fentaNYL (PF) 50 MCG/ML 2 ML AMP ONE (15:35)
[2019-01-22] MEDS ORDERED: PROPOFOL 10 MG/ML 20 ML VIAL IV ONE (15:35)
[2019-01-22] MEDS ORDERED: LACTATED RINGERS 1,000 ML IV ONE (15:38)
[2019-01-22] MEDS ORDERED: LIDOCAINE 1% INJ 10MG/ML (20 ML MDV) SQ ONE ×2 (16:09)
[2019-01-22 18:05] VITALS: TEMP 97.2
[2019-01-22] MEDS: HYDROmorphone 0.5 MG/0.5 ML SYRINGE IVP PRN ×2 (18:05→18:38)
[2019-01-22] MEDS ORDERED: hydrALAZINE HCL 20 MG/ML 1 ML VIAL IVP ONE (18:10)
[2019-01-22] MEDS: Acetaminophen-Codeine 300-30mg TAB PO PRN (19:31)
--- NOTE | 2019-01-22 20:01 | PN ---
PROGRESS NOTE DATE OF SERVICE: 01/22/2019 REASON FOR FOLLOWUP: Right thumb osteomyelitis. INTERVAL HISTORY: The patient is currently afebrile. The patient is breathing comfortably. No chest pain or cough. No abdominal pain. No diarrhea. PHYSICAL EXAMINATION: Blood pressure 185/83 with a pulse of 64, temperature 97.8. She is 97% on room air. General description description is an elderly female lying in bed in no distress. RESPIRATORY SYSTEM: Unlabored breathing. Clear to auscultation anteriorly. HEART: S1, S2. Regular rate and rhythm. ABDOMEN: Soft. No tenderness. LABS: Hemoglobin 11.5, white count 7.1. DIAGNOSTIC IMPRESSION AND PLAN: Patient with right thumb osteomyelitis related to a dog bite. Culture with Streptococcus intermedius, sensitive to Rocephin; to continue along with oral Flagyl. Monitor her clinical course closely. Continue with supportive care. MMLORIL / JAZMINEN: [id number] /
[2019-01-22] MEDS: MONTELUKAST 10 MG TAB PO SCH (21:01)
[2019-01-22 21:44] VITALS: BP 148/83; PULSE 82
[2019-01-23] MEDS ORDERED: VANCOMYCIN TROUGH DUE 1 EACH MISC MISCELLANE ONE (07:00)
--- NOTE | 2019-01-23 07:15 | FL ---
Fluoroscopy History: K WIRE INSERTION RIGHT THUMB 115 SEC FL seconds of fluoroscopic time and films are submitted for K WIRE INSERTION RIGHT THUMB .
--- NOTE | 2019-01-23 19:27 | P.OP ---
Date of Procedure: 01/22/19 Preoperative Diagnosis: 1. Osteomyelitis of the right thumb proximal and distal phalanges status post dog bite injury 2. Septic arthritis of the right thumb interphalangeal (IP) joint 3. Subacute fracture-dislocation of the right thumb interphalangeal (IP) joint with marked bone loss Postoperative Diagnosis: 1. Osteomyelitis of the right thumb proximal and distal phalanges status post dog bite injury 2. Septic arthritis of the right thumb interphalangeal (IP) joint 3. Subacute fracture-dislocation of the right thumb interphalangeal (IP) joint with marked bone loss Procedure(s) Performed: 1. Repeat irrigation and debridement of the right thumb wound/interphalangeal joint 2. Open reduction and internal fixation of comminuted fracture-dislocation of the right thumb interphalangeal joint Implants: 0.054 and 0.045 K-wires Anesthesia: ALINAA, local Surgeon: Pasquale Castro Estimated Blood Loss (ml): 10 Condition: stable Disposition: PACU Indications for Procedure: The patient is a pleasant 63-year-old female who recently underwent I&D for infected dog bite injury of her right thumb. Intraoperative cultures confirmed septic arthritis/osteomyelitis. Due to the length of time between the initial injury and surgical treatment, a repeat debridement was recommended. The IP joint was still grossly malaligned and unstable; reduction and surgical stabilization was also recommended. Risks and benefits were again reviewed with the patient and her . They expressed understanding and wished to proceed with surgery as outlined above. The operative site was confirmed and marked in the preoperative holding area. Description of Procedure: The patient was positioned supine with the operative limb on an arm board. Anesthesia was administered uneventfully. A time-out was performed, confirming patient identifiers, the operative side, site and the procedures to be performed: all team members expressed agreement. The right upper extremity was then prepped and draped in standard, sterile fashion. Local anesthetic was injected in a digital block. The hand was exsanguinated with an Esmarch which was clamped at the wrist as a tourniquet. The sutures were removed and the previous incision was spread open with scissors. Thickened hematoma and fibrous tissue was encountered but no gross purulence. The soft tissues were mechanically debrided with curettes and rongeurs. The bone of the proximal and distal phalanges was debrided with curettes as well. There was visible collapse and angulation of the articular surface of the distal phalanx, secondary to very weak metaphyseal bone. The entire wound was copiously irrigated with normal saline using bulb syringes. Manual reduction of the IP joint was attempted but full religious of length and alignment was unable to be achieved initially due to the distal phalanx res ting in a shortened position for several. The flexor tendon was mobilized and alignment improved. A 0.054 K wire was selected and introduced percutaneously through the tip of the thumb. Fluoroscopic imaging was used to localize the starting point and trajectory. The bone of the distal phalanx was noted to be quite soft throughout. K wire was advanced retrograde into the proximal phalanx. With very little bone remaining of the proximal articular surface, achieving satisfactory alignment of the joint proved difficult. The K wire did not hold its position well and the distal phalanx due to the weakened bone. The wire was advanced to the base of the proximal phalanx and the position was confirmed on orthogonal imaging. A 0.045 was selected and introduced in a similar fashion to achieve better control of length, angulation and rotation. Once the wires were placed, the thumb appeared clinically straight. This was manually stressed and there was no gross motion of the IP joint/distal phalanx. Final x-rays were obtained. The tourniquet was released and good hemostasis was confirmed. The wound was again irrigated with normal saline. The incision was closed with interrupted 4-0 nylon sutures. The pins were cut outside the skin and the larger was capped with a Jurgan ball. Sterile dressings of Adaptic, 4 x 4's, Jo and Coban were applied. All sponge, needle and instrument counts were correct at the end of the case. The patient tolerated the procedure well and was taken to recovery in stable condition.
== END 2019-01-22 22:05 | disposition home or self-care (01) | DRG 513 ==
LOC: OR 14:18 → 4SSUR 21:07 → OR 01-19 12:30 → 4SSUR 01-19 12:30
PROVIDERS: ADMIT Orthopaedic Surgery; ATTEND Orthopaedic Surgery
PROC: 0PBT0ZZ Excision of Right Finger Phalanx, Open Approach (ICD-10-PCS; 2019-01-17)
PROC: 02HV33Z Insertion of Infusion Device into Superior Vena Cava, Percutaneous Approach (ICD-10-PCS; 2019-01-21)
PROC: 0PSR04Z Reposition Right Thumb Phalanx with Internal Fixation Device, Open Approach (ICD-10-PCS; principal; 2019-01-22 08:00)
DX: M00.9 Pyogenic arthritis, unspecified (principal); S62.511B Displaced fracture of proximal phalanx of right thumb, initial encounter for open fracture; M86.141 Other acute osteomyelitis, right hand; L02.511 Cutaneous abscess of right hand; J44.9 Chronic obstructive pulmonary disease, unspecified; W54.0XXA Bitten by dog, initial encounter; Z79.1 Long term (current) use of non-steroidal anti-inflammatories (NSAID); F17.200 Nicotine dependence, unspecified, uncomplicated; Z79.51 Long term (current) use of inhaled steroids; Z79.899 Other long term (current) drug therapy; Z85.42 Personal history of malignant neoplasm of other parts of uterus; Z88.0 Allergy status to penicillin; Z88.1 Allergy status to other antibiotic agents; Z91.018 Allergy to other foods
CPT/HCPCS: 36573; 80048; 80202; 82565; 85025; 85652; 86140; 87070; 87075; 87077; 87102; 87186; 87205; 94640

== ENCOUNTER 2019-11-19 06:59 | Day surgery (SDC) | payer MEDICARE, OTHER ==
[2019-10-31 14:33] VITALS: BMI 21.1
[~2019-11-19 06:59] MED LIST changes: -AMPICILLIN-SULBACTAM 3 GM in SODIUM CHLORIDE 0.9% 100 ML IVPB ONE; +DEXAMETHASONE SOD PHOSPHATE 10 MG/ML 1 ML VIAL IV ONE; +HYDROmorphone 0.5 MG/0.5 ML SYRINGE IVP PRN; +LACTATED RINGERS 1,000 ML IV SCH; +LIDOCAINE 1% (10MG/ML) FOR IV START INTRADERMA PRN; +ONDANSETRON 4 MG/2 ML VIAL IVP ONE; +ONDANSETRON 4 MG/2 ML VIAL IVP PRN; +Pre Op ABX Message 1 EACH MISC MISCELLANE ONE; -VANCOMYCIN IV PER PHARMACY 1 EACH MISC MISCELLANE PRN
[2019-11-19 07:29] VITALS: RESP 16
[2019-11-19] MEDS ORDERED: ONDANSETRON 4 MG/2 ML VIAL ONE (07:31)
[2019-11-19] MEDS ORDERED: MIDAZOLAM 2 MG/2 ML VIAL IV ONE (08:17)
[2019-11-19] MEDS ORDERED: fentaNYL (PF) 50 MCG/ML 2 ML AMP ONE (09:09)
[2019-11-19] MEDS ORDERED: PROPOFOL 10 MG/ML 20 ML VIAL IV ONE (09:09)
[2019-11-19] MEDS ORDERED: GLYCOPYRROLATE 0.2 MG/ML 2 ML VIAL ONE (09:09)
[2019-11-19] MEDS ORDERED: SUCCINYLCHOLINE CHLORIDE 100 MG/5 ML SYR IV ONE (09:09)
[2019-11-19] MEDS ORDERED: PHENYLEPHRINE-0.9% NACL SYG 1 MG/10 ML SYRINGE ONE (09:09)
[2019-11-19] MEDS ORDERED: ROPIVACAINE 5 MG/ML 30 ML VIAL ONE (09:09)
[2019-11-19] MEDS ORDERED: MIDAZOLAM 2 MG/2 ML VIAL ONE (09:09)
[2019-11-19] MEDS ORDERED: DEXAMETHASONE SOD PHOSPHATE 4 MG/ML 1 ML VIAL ONE (09:09)
[2019-11-19] MEDS ORDERED: ePHEDrine SULFATE/0.9% NACL/PF 50 MG/5 ML SYRINGE IV ONE (09:09)
[2019-11-19] MEDS ORDERED: LIDOCAINE 1% INJ 10MG/ML (20 ML MDV) ONE (09:09)
--- NOTE | 2019-11-19 09:13 | P.ANPRN ---
Procedure Note - Anesthesia - Nerve Block Performed Right Supraclavicular Single Time Out Performed: Yes Date of Procedure: 11/19/19 Procedure Start Time: :16 Procedure Stop Time: : Location of Patient: PreOp Indication: Acute Post-Operative Pain, Requested by Surgeon Sedation Type: Sedate with meaningful contact maintained Preparation: Sterile Prep, Sterile Dressing Position: Sitting Catheter: None Needle Types: Pajunk Needle Gauge: 20 Ultrasound used to visualize needle placement: Yes Ultrasound used to observe medication spread: Yes Injectate: 0.5% Ropivacaine (see comment for volume) (20 ml + decadron 4 mg) Blood Aspirated: No Resistance on Injection: Normal Image Stored and Saved: Yes Events: Uneventful and Well Tolerated
[2019-11-19] MEDS ORDERED: LIDOCAINE 1%-EPI 1:100,000 20 ML VIAL INTRAARTIC ONE ×2 (09:50)
[2019-11-19] MEDS ORDERED: SODIUM CHLORIDE 0.9% 100 ML with ceFAZolin 2,000 MG IV ONE ×2 (10:18)
[2019-11-19] MEDS ORDERED: LACTATED RINGERS 1,000 ML IV ONE ×2 (10:47)
--- NOTE | 2019-11-19 13:20 | FL ---
Fluoroscopy History: Rt Thumb Fx 2.35min fluoro time
[2019-11-19 14:12] VITALS: TEMP 97.2
--- NOTE | 2019-11-19 15:22 | XR ---
EXAMINATION TYPE: XR wrist limited RT, XR finger RT DATE OF EXAM: 11/19/2019 CLINICAL HISTORY: pain digit. TECHNIQUE: 2 views of the right wrist and 2 views of the right thumb are submitted. COMPARISON: None FINDINGS: Bone graft is noted from the distal radius. Postsurgical changes are noted about the fixati on screws and pins in place. Postoperative soft tissue changes noted. IMPRESSION: As above
[2019-11-19 15:36] VITALS: BP 102/60; PULSE 77
--- NOTE | 2019-11-24 13:24 | P.OP ---
Date of Procedure: 11/19/19 Preoperative Diagnosis: 1. 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 History of infected right thumb IP joint fracture-dislocation status post dog bite injury Postoperative Diagnosis: 1. 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 History of infected right thumb IP joint fracture-dislocation status post dog bite injury Procedure(s) Performed: Right thumb interphalangeal joint arthrodesis with corticocancellous distal radius autograft Implants: Synthes 2.0 mm x 30 mm headless compression screw (short thread); 0.045 K wire, 0.028 K wires (2), demineralized bone matrix (~2.5 cc) Anesthesia: TRANG, local Surgeon: Pasquale Castro Estimated Blood Loss (ml): 10 Pathology: other (culture swab) Condition: stable Disposition: PACU Indications for Procedure: The patient is very pleasant 64-year-old female who sustained a dog bite to her right thumb, resulting in a fracture-dislocation which went on to develop septic arthritis. I previously performed serial surgical debridements and the infection cleared with IV antibiotics. She went on to develop a painless, stable pseudoarthrosis. She subsequently experienced increasing pain, progressive deformity and bony collapse, with symptomatic instability and secondary arthritis. Treatment options (and associated risks and benefits) were discussed in the office and I recommended a formal arthrodesis with a structural bone autograft to augment the bone loss. Risks of nonunion, malunion, iatrogenic or postop fracture, recurrent infection and chronic pain were discussed in detail. She expressed understanding, acceptance of these risks and elected operative treatment. In preop, additional questions were addressed and the patient wished to proceed with surgery. Consent forms were signed. The operative sites were confirmed and marked in preop. Description of Procedure: The patient was positioned supine with the right arm on an arm board. A tourniquet was applied but was not utilized. General anesthesia was administered uneventfully. Using aseptic technique, local anesthetic with epinephrine was injected into the subcutaneous tissues around the planned incisions/surgical davis. The right upper extremity was then prepped and draped in standard, sterile fashion. A time-out was performed, confirming patient identifiers, the operative side, sites and the procedures to be performed: all team members expressed agreement. The thumb was evaluated with intraoperative fluoroscopy: Nearly the entire ulnar half of the distal aspect of the proximal phalanx was absent, including the articular surface. Clinically, the thumb showed marked coronal angulation with flexion deformity, collapse of the ulnar joint space and gross apex-radial angulation. This did not fully correct passively. Loupe magnification was utilized throughout the case for optimum visualization. The previous ulnar mid-axial incision was utilized. The skin was sharply incised. The skin was densely adherent to the subcutaneous tissues. Full- thickness skin flaps were sharply developed and elevated. Abundant thick fibrous tissue was present within the bony defect of the ulnar condyle of the proximal phalanx head. There was no substantive remaining terminal extensor tendon. The FPL tendon was visualized and protected. A capsulotomy was made and the IP joint was explored. There was no remaining articular cartilage. The opposing bony surfaces were sclerotic with prominent osteophytes. There was no gross purulence or obvious sign of infection. Given her infection history, a culture swab was obtained from within the joint space. At this point, prophylactic IV antibiotics were administered. The volar plate and remaining collateral ligament remnants were sharply released. A Sterling was used to further release the contracted joint capsule. The contracted periarticular tissues were released until the joint could be mobilized and manually reduced to neutral alignment. Large osteophytes were resected with a rongeur. Curettes were used to remove the sclerotic bone and prepare the opposing surfaces back to healthy cancellous bone. Once adequately prepared, there was a substantial bony defect on the ulnar side of the proximal phalanx (~12 mm x 5 mm), as well as moderate bone loss across the base of the distal phalanx. This was felt to be insufficient to provide adequate bony support and the decision was made to proceed with structural bone grafting. A longitudinal incision was made radially at the base of the radial styloid. Superficial veins were coagulated with bipolar cautery. A large branch of the superficial radial sensory nerve was identified, mobilized and protected. The interval between the first dorsal compartment tendons and the pronator quadratus was developed until the radial border of the metadiaphysis was visualized. The overlying fascia and (scant) periosteum were sharply incised. A corticocancellous graft was marked (~15 mm x 7 mm). Using an oscillating saw and frequent irrigation to decrease the risk of thermal necrosis, the graft was harvested and removed in one piece. This was wrapped in a saline-soaked gauze and placed on the back table. The harvest site was irrigated and packed with a moist sponge. The fusion site was copiously irrigated with normal saline. The guidewire for the headless compression screw was introduced percutaneously through the tip of the distal phalanx. The starting point was confirmed on imaging and the wire was driven retrograde into the distal phalanx. Initial attempts to hold the bones reduced and advance the guidewire proved difficult, due to the substantial bone loss. The distal phalanx was grasped with a pointed towel clip and traction was applied. Once the joint space was manually aligned and held in place, 0.045 K wire was introduced distally in a similar fashion and driven obliquely down the medullary canals for provisional stabilization. The corticocancellous bone graft was then contoured to fit the bony defect. The graft was inset and manipulated with a dental pick until satisfactory position was achieved (confirmed on imaging). A 0.028 K wire was inserted to secure the graft to the proximal phalanx. The wire was cut in half and the other end was inserted for additional stabilization. The guidewire for the headless compression screw was then advanced retrograde across the fusion site. Alignment of the fusion site and wire position were assessed with orthogonal images and found to be satisfactory. Based on preoperative templating, a 2.0 mm x 30 mm screw was selected. A stab incision was made over the wire and the cannulated drill was inserted by hand and advanced into the proximal phalanx, checking depth with fluoroscopy. With the fusion site held firmly to prevent rotation, the screw was inserted over the guidewire. The screw achieved excellent purchase in the proximal bone. The guidewire was removed. Final x-rays were obtained. The arthrodesis site was then stressed under live fluoroscopy: there was no appreciable motion of the bones or fixation construct. No iatrogenic fractures were noted. The wounds were copiously irrigated with normal saline. The K-wires were cut short and bent outside the skin. The graft harvest site was thoroughly irrigated and packed with demineralized bone matrix. There was no substantive periosteum to close but the adjacent fascia was closed over the harvest site with interrupted 3-0 Vicryl sutures. The incision was then closed with interrupted 4-0 nylon sutures. The thumb was again irrigated and demineralized bone matrix was packed into the fusion site. The thumb incision was closed around the K-wires with interrupted 5-0 nylon sutures. Good hemostasis was maintained throughout the case without the need for a tourniquet. Additional lidocaine with epinephrine was injected for adjunct postoperative pain control and hemostasis. Soft sterile dressings were applied to both incisions. All sponge, needle and instrument counts were correct at the end of the case. The patient tolerated the procedure well and was transferred to recovery in stable condition.
== END 2019-11-19 16:09 | disposition home or self-care (01) ==
LOC: OR 06:59
PROVIDERS: ATTEND Orthopaedic Surgery
DX: M18.31 Unilateral post-traumatic osteoarthritis of first carpometacarpal joint, right hand (principal); M25.341 Other instability, right hand; W54.0XXD Bitten by dog, subsequent encounter; I12.9 Hypertensive chronic kidney disease with stage 1 through stage 4 chronic kidney disease, or unspecified chronic kidney disease; N18.3 Chronic kidney disease, stage 3 (moderate); E78.2 Mixed hyperlipidemia; F41.1 Generalized anxiety disorder; J44.9 Chronic obstructive pulmonary disease, unspecified; Z88.0 Allergy status to penicillin; Z91.018 Allergy to other foods; F17.210 Nicotine dependence, cigarettes, uncomplicated; Z90.710 Acquired absence of both cervix and uterus; Z98.49 Cataract extraction status, unspecified eye; Z98.890 Other specified postprocedural states; F32.9 Major depressive disorder, single episode, unspecified; Z79.899 Other long term (current) drug therapy; Z85.42 Personal history of malignant neoplasm of other parts of uterus; Z79.82 Long term (current) use of aspirin; Z79.51 Long term (current) use of inhaled steroids
CPT/HCPCS: 64415; 76942; 84132; 87070; 87205; 87075; 87102; 73100; 73140 ×2; 26862; J2250; J1100 ×2; J2405; J0690; J2001; J3010; J2795; J2370; J0330; J2704; J1170

== ENCOUNTER 2020-02-18 11:05 | Day surgery (SDC) | payer MEDICARE, OTHER ==
[2020-02-17 08:34] VITALS: BMI 20.7
[~2020-02-18 11:05] MED LIST changes: -ONDANSETRON 4 MG/2 ML VIAL IVP ONE; -ONDANSETRON 4 MG/2 ML VIAL IVP PRN
[2020-02-18] MEDS: ONDANSETRON 4 MG/2 ML VIAL IVP ONE ×2 (11:39→19:09)
[2020-02-18] MEDS ORDERED: MIDAZOLAM 2 MG/2 ML VIAL ONE (13:30)
[2020-02-18] MEDS ORDERED: SUCCINYLCHOLINE CHLORIDE 100 MG/5 ML SYR IV ONE (13:30)
[2020-02-18] MEDS ORDERED: LIDOCAINE 1% INJ 10MG/ML (20 ML MDV) ONE (13:30)
[2020-02-18] MEDS ORDERED: HYDROmorphone (PF) 1 MG/ML ONE (13:30)
[2020-02-18] MEDS ORDERED: ePHEDrine SULFATE/0.9% NACL/PF 50 MG/5 ML SYRINGE IV ONE (13:30)
[2020-02-18] MEDS ORDERED: KETOROLAC 15 MG/ML 1 ML VIAL ONE (13:30)
[2020-02-18] MEDS ORDERED: fentaNYL (PF) 50 MCG/ML 2 ML AMP ONE (13:30)
[2020-02-18] MEDS ORDERED: PROPOFOL 10 MG/ML 20 ML VIAL IV ONE (13:30)
[2020-02-18] MEDS ORDERED: LIDOCAINE 1% INJ 10MG/ML (20 ML MDV) SQ ONE ×4 (14:31→16:56)
[2020-02-18] MEDS ORDERED: LACTATED RINGERS 1,000 ML IV ONE ×3 (14:31→17:18)
[2020-02-18 18:28] VITALS: TEMP 96.8
[2020-02-18 18:43] VITALS: RESP 16
[2020-02-18] MEDS ORDERED: ONDANSETRON 4 MG/2 ML VIAL ONE (19:07)
[2020-02-18 19:33] VITALS: BP 121/79; PULSE 83
--- NOTE | 2020-03-07 23:54 | P.OP ---
Date of Procedure: 02/18/20 Preoperative Diagnosis: 1. Nonhealing right thumb wound. 2. Incomplete fusion status post right thumb interphalangeal (IP) joint arthrodesis with distal radius bone graft. 3. Right wrist ganglion cyst. Postoperative Diagnosis: 1. Nonhealing right thumb wound. 2. Incomplete fusion status post right thumb interphalangeal (IP) joint arthrodesis with distal radius bone graft. 3. Right wrist ganglion cyst. Procedure(s) Performed: 1. Irrigation and sharp excisional debridement of non-healing right thumb wound. 2. Debridement of incomplete right thumb IP joint arthrodesis. 3. Right thumb wound closure with vascular pedicle flap (first dorsal me tacarpal artery). 4. Full-thickness skin grafting of the donor site. 5. Excision of right wrist ganglion cyst. Implants: Demineralized bone matrix Anesthesia: ALINAA, local Surgeon: Pasquale Castro Estimated Blood Loss (ml): 20 Pathology: other (Wound culture) Condition: stable Disposition: PACU Indications for Procedure: The patient is a very pleasant 64-year-old female on whom I previously performed a right thumb interphalangeal joint arthrodesis. She initially sustained a dog bite injury (initially treated at an outside institution), resulting in an IP joint fracture-dislocation which was grossly infected and required serial operative debridements and surgical stabilization. The infection cleared but she eventually developed a symptomatic, unstable pseudoarthrosis and later underwent a joint fusion. The postoperative wound did heal completely after her most recent surgery. But she later developed an ulcerated wound over the bone graft site. Treatment options were discussed in the office and I recommended formal surgical debridement and wound closure with vascularized flap. Risks and benefits were discussed in detail, including possibility for flap failure and the need for subsequent surgeries. She also developed a painful ganglion cyst on her right wrist and wished to have this removed as well. The patient expressed understanding, willingness to accept these risks and elected to undergo the aforementioned procedures. In preop, additional questions were addressed and the patient wished to proceed with surgery. Consent forms were signed. The operative sites were confirmed and marked in preop. Description of Procedure: The patient was brought to the operating suite and positioned supine with the operative limb on a hand table. All bony prominences were well-padded. Anesthesia was administered uneventfully. A tourniquet was placed on the operative arm but was not initially inflated. The right upper extremity was then prepped and draped in standard, sterile fashion. A timeout was performed, confirming patient identifiers, the operative side, the sites and the procedures to be performed: all team members expressed agreement. Local anesthetic without epinephrine was injected at each of the intended surgical sites. The course of the first dorsal metacarpal artery was identified by Doppler and marked on the skin. The island skin flap was outlined on the dorsal aspect of the index finger proximal phalanx. A lazy S-shaped incision was drawn along the course of the vascular pedicle. The limb was exsanguinated with an Esmarch and the tourniquet was inflated. The ganglion cyst was approached first. The mass was palpated on the radial aspect of the wrist, overlying the radial styloid. A small longitudinal incision was made. Spreading dissection was used to divide the subcutaneous tissues. Small traversing radial sensory nerve branches were visualized, mobilized and protected. The well-circumscribed cyst was identified on the surface of the first dorsal compartment sheath. The cyst was circumferentially dissected free and mobilized from the surrounding soft tissues. This was sharply excised, removing a small segment of the underlying sheath. A small amount of thickened tenosynovial tissue was identified between the underlying tendons and was carefully debrided with a rongeur. The wound was irrigated and closed with interrupted subcuticular 5-0 Monocryl sutures. The cyst had the classic appearance of a ganglion and pathologic analysis was deemed necessary. No specimen was sent. Attention was turned to the thumb wound. The open wound measured 3 mm x 6 mm with visible exposed bone at the center. The skin immediately surrounding the wound was of very poor quality. A perimeter of healthy skin was outlined and the compromised wound edges were included into an elliptical excision. The wound bed was sharply debrided with a scalpel, resecting unhealthy and devascularized skin and subcutaneous tissue. The resulting defect left a wound bed measuring 10 mm x 23 mm. A small amount of thick exudative fluid was identified at the wound edge prior to skin prep; however, there was no obvious purulence or sign of active infection within the wound. Given the amount of time that the bone was exposed, a deep culture of the fusion site was obtained. The corticocancellous bone graft appeared solidly-fixed at its base. However, the spaces between it and the adjacent bone had yet to heal, and there were clear persistent fissures containing small amounts of fibrous tissue. Curettes and a dental pick were used to carefully debride the exposed bone in the interspaces within the incompletely-fused arthrodesis site. The wound was then copiously irrigated with several hundred ccs of normal saline, while the surrounding bone and tissues were mechanically debrided with curettes. The wound was covered with a moist gauze while attention was then turned to the flap. The skin island was sharply incised, and the skin incision was extended along the vascular pedicle. There was a paucity of subcutaneous tissue along the path of the vascular pedicle, even less than her slight/thin body habitus would suggest. The flap was sharply dissected off the extensor paratenon and carefully raised in a [id number] direction to the pivot point at the base of the second metacarpal. A subcutaneous tunnel was created on the dorsoulnar aspect of the thumb. The island flap along with its vascular pedicle was rotated and passed through the tunnel and out the open wound. The skin flap was positioned to cover the wound. At this point, the tourniquet was released (after 82 minutes at 150 mmHg) and not used for the remainder of the case. The flap showed slow return of capillary refill and mild bleeding from the skin edges. Retained flow through the artery at the pivot point was confirmed with the Doppler. The skin flap was held in place while the margins were sharply contoured to m atch the wound bed defect. Prior to securing the flap, the wound was again irrigated and demineralized bone matrix was packed into the interspaces of the fusion site. The flap was then loosely sewn in place with interrupted 5-0 nylon sutures. This covered the defect completely and without tension. Bipolar cautery was used to establish meticulous hemostasis at the donor site to prevent hematoma. The wound was copiously irrigated with normal saline. The S- shaped incision was closed primarily with interrupted 4-0 & 5-0 nylon sutures. The donor defect from the skin island measured approximately 18 mm x 35 mm. A full-thickness skin graft was designed (slightly larger than the donor site defect) from the skin on the medial arm. This was harvested sharply and defatted. Two small stab incisions were made in the center of the graft to allow for drainage. The skin graft was sutured in place with interrupted 5-0 nylon sutures, completely covering the defect without tension. A bolster was made from a rolled Adaptic and was tied in place over the skin graft with 4-0 nylon sutures. The skin graft harvest site was irrigated and closed primarily with interrupted 3-0 Vicryl sutures for the subcutaneous tissues and a running subcuticular 5-0 Monocryl stitch for the skin, completely closing the harvest site. Additional local anesthetic without epinephrine was injected for adjunct post operative pain control. Soft, sterile dressings were applied to the thumb, hand and arm, followed by a plaster thumb spica splint. All sponge, needle and instrument counts were correct at the end of the case. The patient tolerated the procedure well and she was transferred to recovery in stable condition.
== END 2020-02-18 19:43 | disposition home or self-care (01) ==
LOC: OR 11:05
PROVIDERS: ATTEND Orthopaedic Surgery
DX: L98.499 Non-pressure chronic ulcer of skin of other sites with unspecified severity (principal); T81.89XA Other complications of procedures, not elsewhere classified, initial encounter; M67.431 Ganglion, right wrist; K08.89 Other specified disorders of teeth and supporting structures; E78.5 Hyperlipidemia, unspecified; J44.9 Chronic obstructive pulmonary disease, unspecified; F41.9 Anxiety disorder, unspecified; Z86.19 Personal history of other infectious and parasitic diseases; Z79.899 Other long term (current) drug therapy; Z79.51 Long term (current) use of inhaled steroids; Z85.42 Personal history of malignant neoplasm of other parts of uterus; Z97.3 Presence of spectacles and contact lenses; Z88.0 Allergy status to penicillin; Z98.890 Other specified postprocedural states; Z87.09 Personal history of other diseases of the respiratory system; Z90.710 Acquired absence of both cervix and uterus; Z98.41 Cataract extraction status, right eye; Z98.42 Cataract extraction status, left eye; Z87.81 Personal history of (healed) traumatic fracture; Z98.1 Arthrodesis status; Z91.89 Other specified personal risk factors, not elsewhere classified; Z87.891 Personal history of nicotine dependence; Z97.2 Presence of dental prosthetic device (complete) (partial)
CPT/HCPCS: 25111; 11044; 11047; 87070; 87205; 87075; 87077; 87186; 15220; 15221 ×3; C1713; J2250; J1100; J2405; J2001; J3010; J1170; J1885; J0330; J2704

== ENCOUNTER → 2020-03-03 | Outpatient (CLI) | payer MEDICARE, OTHER ==
--- NOTE | 2020-03-05 11:09 | MM ---
Reason for exam: screening (asymptomatic). Last mammogram was performed 1 year and 4 months ago. History: Patient is postmenopausal and has history of other cancer at age 60. Family history of breast cancer in mother at age 55. 2 benign excisional biopsies of the right breast. Took estrogen for 10 years. Took progesterone for 3 years. Physical Findings: A clinical breast exam by your physician is recommended on an annual basis and results should be correlated with mammographic findings. MG 3D Screening Mammo W/Cad Bilateral CC and MLO view(s) were taken. Prior study comparison: October 28, 2018, bilateral MG 3d screening mammo w/cad. October 22, 2017, bilateral MG 3d screening mammo w/cad. The breast tissue is heterogeneously dense. This may lower the sensitivity of mammography. Stable left upper outer quadrant focal asymmetry with course calcifications. Dermal calcifications on the medial aspect of both breasts are also unchanged. No significant changes when compared with prior studies. ASSESSMENT: Benign, BI-RAD 2 RECOMMENDATION: Routine screening mammogram of both breasts in 1 year.
== END | disposition home or self-care (01) ==
LOC: RADMAMWWP 13:26
PROVIDERS: ATTEND Obstetrics & Gynecology
DX: Z12.31 Encounter for screening mammogram for malignant neoplasm of breast (principal); Z80.3 Family history of malignant neoplasm of breast
CPT/HCPCS: 77063; 77067

== ENCOUNTER → 2021-03-04 | Outpatient (CLI) | payer MEDICARE, OTHER ==
--- NOTE | 2021-03-08 11:36 | MM ---
Reason for exam: screening (asymptomatic). Last mammogram was performed 1 year ago. History: Patient is postmenopausal and has history of other cancer at age 60. Family history of breast cancer in mother at age 55. 2 benign excisional biopsies of the right breast. Took estrogen for 10 years. Took progesterone for 3 years. Physical Findings: A clinical breast exam by your physician is recommended on an annual basis and results should be correlated with mammographic findings. MG 3D Screening Mammo W/Cad Bilateral CC and MLO view(s) were taken. Prior study comparison: March 03, 2020, bilateral MG 3d screening mammo w/cad. October 28, 2018, bilateral MG 3d screening mammo w/cad. The breast tissue is heterogeneously dense. This may lower the sensitivity of mammography. There are benign appearing round, vascular, dystrophic calcifications bilaterally. There is no new discrete abnormality. ASSESSMENT: Benign, BI-RAD 2 RECOMMENDATION: Routine screening mammogram of both breasts in 1 year.
== END | disposition home or self-care (01) ==
LOC: RADMAMWWP 09:37
PROVIDERS: ATTEND Obstetrics & Gynecology
DX: Z12.31 Encounter for screening mammogram for malignant neoplasm of breast (principal); Z80.3 Family history of malignant neoplasm of breast; Z85.89 Personal history of malignant neoplasm of other organs and systems
CPT/HCPCS: 77063; 77067

== ENCOUNTER → 2021-04-15 | Outpatient (CLI) | payer MEDICARE, OTHER ==
--- NOTE | 2021-04-15 15:59 | XR ---
EXAMINATION TYPE: XR ribs LT w pa chest xray DATE OF EXAM: 04/15/2021 COMPARISON: None HISTORY: Intercostal pain TECHNIQUE: 2 view left RIBS FINDINGS: No acute displaced rib fractures are evident. No pneumothorax is evident. Follow-up can be performed 7-10 days from acute trauma for continued pain. IMPRESSION: 1. No acute osseous abnormality left ribs.
== END ==
LOC: RADXRYALE 15:05
PROVIDERS: ATTEND Family Medicine
DX: R07.82 Intercostal pain (principal)

== ENCOUNTER → 2022-03-06 | Outpatient (CLI) | payer MEDICARE, OTHER ==
--- NOTE | 2022-03-07 09:34 | MM ---
Reason for Exam: Screening (asymptomatic). Last screening mammogram was performed 12 month(s) ago. Patient History: Menarche at age 10. First Full-Term at age 14. Left ovary removed at age 61. Right ovary removed at age 61. Hysterectomy at age 61. Postmenopausal. Other cancer, age 60. Patient used Estrogen for 10 years. Patient used Progesterone for 3 years. Benign Excisional Biopsy on the right side. Benign Excisional Biopsy on the right side. Mother had breast cancer, age 55. Risk Values: Radha 5 year model risk: 4.8%. NCI Lifetime model risk: 14.2%. Prior Study Comparison: 10/28/2018 Bilateral Screening Mammogram, [facility]. 03/03/2020 Bilateral Screening Mammogram, [facility]. 03/04/2021 Bilateral Screening Mammogram, [facility]. Tissue Density: The breast tissue is heterogeneously dense. This may lower the sensitivity of mammography. Findings: Analyzed By CAD. There are benign-appearing vascular and small round calcifications bilaterally redemonstrated. Continue increase in number of a cluster of dystrophic calcifications in the upper outer aspect left breast. There is no suspicious new distortion or new suspicious mass in either breast. Overall Assessment: Benign, BI-RAD 2 Management: Screening Mammogram of both breasts in 1 year. A clinical breast exam by your physician is recommended on an annual basis and results should be correlated with mammographic findings. Electronically signed and approved by: Abraham Frost M.D.
== END | disposition home or self-care (01) ==
LOC: RADMAMWWP 11:46
PROVIDERS: ATTEND Obstetrics & Gynecology
DX: Z12.31 Encounter for screening mammogram for malignant neoplasm of breast (principal); Z78.0 Asymptomatic menopausal state; Z80.3 Family history of malignant neoplasm of breast
CPT/HCPCS: 77063; 77067

== ENCOUNTER → 2022-03-13 | Outpatient (CLI) | payer MEDICARE, OTHER ==
--- NOTE | 2022-03-13 16:17 | CT ---
EXAMINATION TYPE: CT chest wo con DATE OF EXAM: 03/13/2022 COMPARISON: Prior CTA chest April 01, 2015 HISTORY: COPD CT DLP: 301 mGycm. Automated Exposure Control for Dose Reduction was Utilized. TECHNIQUE: CT scan of the thorax is performed without IV contrast. FINDINGS: LUNGS: Moderate to advanced underlying emphysematous change is redemonstrated. Mild biapical pleural /parenchymal scarring is seen. No suspicious nodules or masses. No pleural effusion or pneumothorax. No suspicious focal consolidation. MEDIASTINUM: Lack of IV contrast is noted to limit evaluation for mediastinal and especially hilar ad enopathy. There are no definitive greater than 1 cm mediastinal lymph nodes. No cardiomegaly or per icardial effusion is seen. OTHER: Mild calcified plaque of the aorta extends into branch vessels. There is S-shaped scoliosis re demonstrated. IMPRESSION: Moderate to advanced emphysematous change without suspicious acute pulmonary process.
== END | disposition home or self-care (01) ==
LOC: RADCTMAIN 13:36
PROVIDERS: ATTEND Family Medicine
DX: J43.9 Emphysema, unspecified (principal); Z85.42 Personal history of malignant neoplasm of other parts of uterus
CPT/HCPCS: 71250

== ENCOUNTER → 2023-03-09 | Outpatient (CLI) | payer MEDICARE, OTHER ==
--- NOTE | 2023-03-12 09:04 | MM ---
Reason for Exam: Screening (asymptomatic). Last mammogram was performed 1 year(s) and 1 month(s) ago. Patient History: Menarche at age 10. First Full-Term at age 14. Left ovary removed at age 61. Right ovary removed at age 61. Hysterectomy at age 61. Postmenopausal. Other cancer, age 60. Patient used Estrogen for 10 years. Patient used Progesterone for 3 years. Benign Excisional Biopsy on the right side. Benign Excisional Biopsy on the right side. Mother had breast cancer, age 55. Risk Values: Radha 5 year model risk: 4.8%. NCI Lifetime model risk: 13.5%. Prior Study Comparison: 03/03/2020 Bilateral Screening Mammogram, [facility]. 03/04/2021 Bilateral Screening Mammogram, [facility]. 03/06/2022 Bilateral MG 3D screening mammo w/cad, [facility]. Tissue Density: The breast tissue is heterogeneously dense. This may lower the sensitivity of mammography. Findings: Analyzed By CAD. There is no suspicious group of microcalcifications or new suspicious mass. Benign-appearing calcifications bilaterally. Overall Assessment: Negative, BI-RAD 1 Management: Screening Mammogram of both breasts in [address] [facility] will attempt to contact patient to return for supplemental views and ultrasound if indicated. Patient should continue monthly self-breast exams. A clinical breast exam by your physician is recommended on an annual basis. This exam should not preclude additional follow-up of suspicious palpable abnormalities. Note on Radha scores and lifetime risk: 1. A Radha score greater than 3% is considered moderate risk. If this is the case, consider specialist referral to assess eligibility for a risk reducing agent. 2. If overall lifetime risk for the development of breast cancer is 20% or higher, the patient may qualify for future screening with alternating mammogram and breast MRI. Electronically signed and approved by: Nathen Billings DO
== END | disposition home or self-care (01) ==
LOC: RADMAMWWP 11:05
PROVIDERS: ATTEND Obstetrics & Gynecology
DX: Z12.31 Encounter for screening mammogram for malignant neoplasm of breast (principal); Z78.0 Asymptomatic menopausal state; Z80.3 Family history of malignant neoplasm of breast
CPT/HCPCS: 77063; 77067

== ENCOUNTER → 2024-03-10 | Outpatient (CLI) | payer MEDICARE, OTHER ==
--- NOTE | 2024-03-16 18:04 | MM ---
Reason for Exam: Screening (asymptomatic). Last screening mammogram was performed 12 month(s) ago. Patient History: Menarche at age 10. First Full-Term at age 14. Left ovary removed at age 61. Right ovary removed at age 61. Hysterectomy at age 61. Postmenopausal. Other cancer, age 60. Patient used Estrogen for 10 years. Patient used Progesterone for 3 years. Benign Excisional Biopsy on the right side. Benign Excisional Biopsy on the right side. Mother had breast cancer, age 55. Risk Values: Radha 5 year model risk: 4.8%. NCI Lifetime model risk: 12.9%. Prior Study Comparison: 03/04/2021 Bilateral Screening Mammogram, [facility]. 03/06/2022 Bilateral MG 3D screening mammo w/cad, [facility]. 03/09/2023 Bilateral MG 3D screening mammo w/cad, [facility]. Tissue Density: There are scattered areas of fibroglandular density. Findings: Analyzed By CAD. The pattern is stable. There are multiple stable coarse calcifications within the upper outer left breast. Benign vascular calcifications present bilaterally. There are a few additional scattered rounded punctate calcifications. No suspicious groups of microcalcifications, spiculated or lobular masses, architectural distortion or other secondary signs of malignancy are mammographically apparent. Overall Assessment: Benign, BI-RAD 2 Management: Screening Mammogram of both breasts in 1 year. A negative mammogram report should not preclude additional follow up of suspicious palpable abnormalities. Patient should continue monthly self breast exam. A clinical breast exam by your physician is recommended on an annual basis and results should be correlated with mammographic findings. Note on Radha scores and lifetime risk: 1. A Radha score greater than 3% is considered moderate risk. If this is the case, consider specialist referral to assess eligibility for a risk reducing agent. 2. If overall lifetime risk for the development of breast cancer is 20% or higher, the patient may qualify for future screening with alternating mammogram and breast MRI. [facility], , 03/16/2024 5:58 PM. Electronically signed and approved by: Jesus Damon D.O. Radiologis
== END | disposition home or self-care (01) ==
LOC: RADMAMWWP 11:37
PROVIDERS: ATTEND Family Medicine
DX: Z12.31 Encounter for screening mammogram for malignant neoplasm of breast (principal); R92.323 Mammographic fibroglandular density, bilateral breasts; Z78.0 Asymptomatic menopausal state; Z80.3 Family history of malignant neoplasm of breast
CPT/HCPCS: 77063; 77067